=== PATIENT | male | born 1970 | race Caucasian/White ===

== ENCOUNTER 2017-07-29 18:01 | Emergency (ER) | payer OTHER ==
[~2017-07-29] VITALS: Ht 182.9 cm; Wt 95.3 kg
[2017-07-29 18:07] VITALS: BP 142/89
[2017-07-29] MEDS ORDERED: LIDOCAINE-MPF 1%, 5ML INFIL ONE (18:30)
[2017-07-29] MEDS ORDERED: BACITRACIN ZINC OINT 500U/GM, 0.9 GM ONE (19:37)
== END 2017-07-29 19:45 | disposition home or self-care (01) ==
LOC: ED 19:15
DX: S81.812A Laceration without foreign body, left lower leg, initial encounter (principal); X58.XXXA Exposure to other specified factors, initial encounter; Y93.89 Activity, other specified; Y92.009 Unspecified place in unspecified non-institutional (private) residence as the place of occurrence of the external cause; Y99.8 Other external cause status
CPT/HCPCS: 12002; 12032; 99283; 99284

== ENCOUNTER 2017-08-05 19:01 | Emergency (ER) | payer OTHER ==
[~2017-08-05] VITALS: Ht 182.9 cm; Wt 96.7 kg
[2017-08-05 19:04] VITALS: BP 149/83
== END 2017-08-05 20:14 | disposition home or self-care (01) ==
LOC: ED 19:31
DX: Z48.02 Encounter for removal of sutures (principal)
CPT/HCPCS: 99283

== ENCOUNTER 2018-02-14 16:59 | Emergency (ER) | payer OTHER ==
[~2018-02-14] VITALS: Ht 182.9 cm; Wt 95.0 kg
[2018-02-14 17:09] VITALS: BP 116/80
[2018-02-14] MEDS ORDERED: LIDOCAINE-MPF 1%, 2ML ONE (17:30)
[2018-02-14] MEDS ORDERED: DIPH,PERTUSS(ACELL),TET VAC/PF 0.5 ML IM-VACC ONE ×3 (17:30→18:44)
[2018-02-14] MEDS ORDERED: LIDOCAINE-MPF 1%, 5ML INFIL ONE (17:30)
[2018-02-14] MEDS ORDERED: CEFAZOLIN 1,000 MG ONE (17:44)
[2018-02-14] MEDS ORDERED: CEFAZOLIN 1,000 MG IM ONE (18:00)
== END 2018-02-14 18:49 | disposition home or self-care (01) ==
LOC: ED 18:19
DX: S62.622A Displaced fracture of middle phalanx of right middle finger, initial encounter for closed fracture (principal); V86.06XA Driver of dirt bike or motor/cross bike injured in traffic accident, initial encounter; Y93.89 Activity, other specified; Y92.89 Other specified places as the place of occurrence of the external cause; Y99.8 Other external cause status
CPT/HCPCS: 29130; 73130; 90471; 90715; 96372; 99284; J0690

== ENCOUNTER 2020-08-08 16:50 | Emergency (ER) | payer BC, OTHER ==
[~2020-08-08] VITALS: Ht 182.9 cm; Wt 93.0 kg
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
[2020-08-08] MEDS ORDERED: LIDOCAINE 1%-EPI 1:100K, 20ML INFIL ONE (19:30)
[2020-08-08] MEDS ORDERED: DIPH,PERTUSS(ACELL),TET VAC/PF 0.5 ML IM-VACC ONE ×2 (19:30→19:41)
[2020-08-08] MEDS ORDERED: LIDOCAINE-MPF 1%, 5ML ONE (19:41)
[2020-08-08] MEDS ORDERED: NEOSPORIN OINT. PKT 1 PACKET ONE (19:54)
[2020-08-08 20:46] VITALS: BP 138/74
--- NOTE | 2020-08-08 20:47 | NUR ---
Patient given discharge instructions and they have confirmed that they understand the instructions. Patient ambulatory with steady gait. NAD, DENIES ADDITIONAL QUESTIONS OR NEEDS, VSS, WOUND DRESSED. NO PERSONAL BELONGINGS LEFT IN ROOM AFTER DC
== END 2020-08-08 20:49 | disposition home or self-care (01) ==
LOC: ED 20:15
DX: S81.012A Laceration without foreign body, left knee, initial encounter (principal); X58.XXXA Exposure to other specified factors, initial encounter; Y93.89 Activity, other specified; Y92.89 Other specified places as the place of occurrence of the external cause; Y99.8 Other external cause status
CPT/HCPCS: 12032; 99284